=== PATIENT | male | born 1960 | race Caucasian/White ===

== ENCOUNTER 2016-05-22 10:23 | Inpatient (IN) | payer MEDICARE ==
[2016-05-22] VITALS (9 sets, daily range): BP systolic 142–158; BP diastolic 67–92; PULSE 85–112; RESP 16–30; O2SAT 95–98
[~2016-05-22] VITALS: Ht 188 cm; Wt 99.1 kg
[~2016-05-22 10:23] MED LIST: ATOR20TA65 PO; CARV6.25 PO; FRSM80T PO; INSU100C8 SUBQ; INSU100V4 SUBQ; KLO1T PO; LAN125 PO; LINE600T2 PO; MAGN400T39 PO; OXYC1TAB24 PO; POTA20LI2 PO; PREG300C PO; SPIR25TA3 PO; SYMINH INHALATION; TAMS0.4C98 PO; WARF10TA4 PO
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
[2016-05-22] MEDS ORDERED: 0.9% Sodium Chloride 1,000 ML IV ONE ×2 (11:09→13:35)
[2016-05-22] MEDS ORDERED: Azithromycin Inj 500 MG in Dextrose 5% w/Vial Mate 250 ML IV ONE (11:10)
[2016-05-22] MEDS ORDERED: cefTRIAXone Inj 2,000 MG in Dextrose 5% Minibag Plus 50 ML IV ONE (11:10)
[2016-05-22] MEDS: Ondansetron 2 mg/mL 2 mL Inj IVPUSH PRN ×3 (11:39→21:23)
[2016-05-22] MEDS: HYDROmorphone 0.5 mg/0.5 mL iSecure Syringe IVPUSH PRN ×4 (11:39→20:40)
[2016-05-22 11:54] LABS: BASOPHILS % (AUTO) 0.2 % (0-3); EOSINOPHILS % (AUTO) 1.2 % (0-5); MONOCYTES % (AUTO) 7.9 % (4-12); Mean Corpuscular Hemoglobin 27.8 pg (27.0-35.0); Mean Corpuscular Volume 81.7 fL (81-100); NEUTROPHILS % (AUTO) 80.3 % (40-74); Platelet Count 210 bil/L (150-400)
[2016-05-22 12:09] LABS: INR 1.38 ratio
[2016-05-22 12:25] LABS: TROPONIN T 0.01 ug/L (0.0-0.011)
[2016-05-22 12:36] LABS: APPEARANCE,URINE CLEAR (CLEAR,HAZY); COLOR,URINE YELLOW (YELLOW)
[2016-05-22 12:37] LABS: OCCULT BLOOD,URINE NEGATIVE (NEGATIVE)
--- NOTE | 2016-05-22 12:54 | DRSVH ---
PROCEDURE: X-RAY CHEST ONE VIEW, PORTABLE ([id number]) INDICATIONS: cough TECHNIQUE: One view of the chest was acquired. COMPARISON: [facility], CR, XR CHEST 1VW (PORTABLE), 11/10/2014, 14:17. FINDINGS: Surgical changes and devices: AICD is stable in appearance. Lungs and pleura: No pleural effusions or pneumothorax. Lungs are clear. Mediastinum: Mediastinal contours appear normal. Heart size is normal. Bones and chest wall: No suspicious bony lesions. Overlying soft tissues appear unremarkable. IMPRESSION: No acute cardiopulmonary disease process. Dictated by: Katerin Pratt MD, PhD on 05/22/2016 at 12:27 Approved by: Katerin Pratt MD, PhD on 05/22/2016 at 12:27
[2016-05-22] MEDS ORDERED: 0.9% Sodium Chloride 1,000 ML IV SCH (13:32)
[2016-05-22] MEDS ORDERED: Ondansetron 2 mg/mL 2 mL Inj IVPUSH PRN (13:35)
[2016-05-22] MEDS ORDERED: Alum-Mag Hydrox-Simeth 30 mL Suspension PO PRN ×2 (13:35→14:35)
[2016-05-22] MEDS ORDERED: POTA10TA12 PO (14:07)
[2016-05-22] MEDS ORDERED: Polyethylene Glycol (PEG) 17 Gm Powder PO PRN (14:35)
[2016-05-22] MEDS ORDERED: Senna-Docusate 8.6-50 mg Tablet PO PRN (14:35)
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
--- NOTE | 2016-05-22 16:17 | NUR ---
Admit Patient admitted from ED, arrived to unit via gurney. Patient stood up and ambulated from [place] to bed independently using cane. A& O x3. 10/10 pain in toes r/t neuropathy. VSS. Denies dyspnea. Intermittent productive cough that patient states he has had for weeks is his main complaint. Girlfriend at bedside, call light with in reach.
[2016-05-22] MEDS ORDERED: WARFARIN SODIUM 15 MG PO SCH (17:10)
[2016-05-22] MEDS ORDERED: Non-Formulary Medication (Warfarin Sodium 10 MG) PO SCH (17:10)
--- NOTE | 2016-05-22 17:20 | NUR ---
Social Work: Initial Assessment D: Per EMR review, pt is a 55 year old male admitted for pneumonia R Side. Pt is Medicare with no supplement; pt has no LTC insurance or VA benefits. PCP is Real Wood MD. NOK is Cyndie Sales, friend, . Advanced directives not completed- information provided by INFRASTRUCTURE TECH. Readmit score not entered at this time. INFRASTRUCTURE TECH met with pt at bedside. Sw role and contact information provided. See initial assessment. Pt lives in a 5th Wheel trailer in [place] with 3 steps to enter. Pt is I with ADLs and uses a cane for ambulation. Pt does not have a reliable form of transportation and relies on friends to transport him to appointments and to get food. Pt has a history with [facility] for RN, PT. He would like to explore adding these services at time of discharge. HH CHOICE LIST PROVIDED- preference is for [facility]. Pt also has a history with [facility]. He does not wish to return to skilled rehab. Pt states that he will have a friend transport him home when medically stable. F2F in folder for MD signature if pt meets criteria for home health. A: Pt who is from [place] and I at baseline. P: Anticipate pt to discharge home with [facility] for RN care. INFRASTRUCTURE TECH to continue to follow and provide referral to [facility] if pt is medically appropriate. MENDEZ Cuellar Addendum: 05/22/16 at 1727 by RAY DURAN Amended: Links added.
[2016-05-22] MEDS: 0.9% Sodium Chloride 1,000 ML IV SCH (17:54)
[2016-05-22] MEDS ORDERED: HYDROmorphone 0.5 mg/0.5 mL iSecure Syringe IVPUSH SCH (18:00)
--- NOTE | 2016-05-22 19:41 | PCM.PHAPRO ---
Progress Date of Service: May 22, 2016 ANTICOAGULATION MANAGEMENT BY PHARMACY -INDICATION: MIOCARDIAL INFARCTION X4 -HOME DOSE: 10 MG SUN,THU,THU,THU,SAT 15 MG , -CONCURRENT ANTICOAGULATION: NONE -CRCL: 126 ML/MIN -COAG TRENDS: 2-May 1.38 -[id number] SCORE: 4 PLAN: WILL RESTART PATIENT ON THEIR HOME DOSE OF 10 MG TONIGHT DUE TO SUBTHERAPEUTIC INR AND WILL CONTINUE TO WATCH INR TRENDS AND DOSE APPROPRIATE Pharmacy appreciates consult and will continue to monitor. THANKS! Jessie Sotelo PharmD May 22, 2016 19:41
[2016-05-22] MEDS ORDERED: Glucose 40% Oral Gel 15 Gm Tube PO PRN (19:50)
[2016-05-22] MEDS ORDERED: INSULIN DETEMIR 45 UNIT SUBQ SCH (20:30)
[2016-05-22] MEDS: Insulin GLARgine 100 Unit/mL Syringe SUBQ SCH ×2 (20:30→21:35)
[2016-05-22] MEDS: Insulin LISPRO 300 Unit/3 mL Inj SUBQ SCH (21:34)
--- NOTE | 2016-05-22 22:58 | NUR ---
Lab pt positive for Human Metapneumovirus, called MD placed pt on contact and droplet precautions.
[2016-05-23] MEDS: Ondansetron 2 mg/mL 2 mL Inj IVPUSH PRN ×2 (01:17→08:49)
[2016-05-23] MEDS: HYDROmorphone 0.5 mg/0.5 mL iSecure Syringe IVPUSH PRN (01:18)
[2016-05-23 03:50] LABS: BASOPHILS % (AUTO) 0.3 % (0-3); EOSINOPHILS % (AUTO) 1.3 % (0-5); MONOCYTES % (AUTO) 10.4 % (4-12); Mean Corpuscular Volume 83.6 fL (81-100); NEUTROPHILS % (AUTO) 74.8 % (40-74); Platelet Count 182 bil/L (150-400)
[2016-05-23 03:57] VITALS: BP 145/88; PULSE 89; RESP 18; O2SAT 96
[2016-05-23 03:59] LABS: INR 1.12 ratio
[2016-05-23 04:06] LABS: Magnesium 1.7 mg/dL (1.6-2.6)
--- NOTE | 2016-05-23 05:14 | NUR ---
pain/nausea pt with 10/10 pain in his toes, 0.5mg IV dilaudid given pt feels nausea so gave 4mg IV zofran both were effective, later pt requesting more dilaudid and zofran for nausea at the time pt was eating chips and drinking mt dew soda. reported to pt that if he was nauseated that eating chips and drinking mt dew wasn't going to help even with the zofran. pt getting very upset threatened to leave AMA, explained to pt that the zofran could help with his nausea but most likely not if he was eating and drinking. pt stating he didn't need my opinion and i just needed to get him what he asked for, gave both. about an hour later pt reporting to PORTRAIT CONSULTANT that the nausea medication didn't work. offered another dose of zofran pt declined. pt appears to be resting comfortably
[2016-05-23 08:00] VITALS: BP 148/80; PULSE 80; PULSE 87; RESP 18; O2SAT 95
[2016-05-23] MEDS ORDERED: Azithromycin Inj 500 MG in Dextrose 5% w/Vial Mate 250 ML IV SCH (08:30)
[2016-05-23] MEDS ORDERED: cefTRIAXone Inj 2,000 MG in Dextrose 5% Minibag Plus 50 ML IV SCH (08:30)
[2016-05-23] MEDS: 0.9% Sodium Chloride 1,000 ML IV SCH (08:49)
[2016-05-23] MEDS: Insulin LISPRO 300 Unit/3 mL Inj SUBQ SCH ×2 (08:58→12:00)
[2016-05-23] MEDS: Insulin GLARgine 100 Unit/mL Syringe SUBQ SCH (08:59)
--- NOTE | 2016-05-23 10:25 | NUR ---
Case Management: IMM given and explained at 09:25. Dolores BARNES RN
[2016-05-23 12:00] VITALS: BP 146/84; PULSE 85; RESP 16; O2SAT 97
[2016-05-23 12:59] VITALS: PULSE 92
--- NOTE | 2016-05-23 13:15 | PCM.DIMED ---
Discharge Instructions Date of Service May 23, 2016 Dates of Hospitalization May 22, 2016 at 14:20 Discharge Diagnosis Discharge Diagnosis #.community acquired pneumonia. Active. #. human metapneumovirus infection /pneumonia # chronic systolic CHF EF 10-15% #. Insulin Dependent Diabetes, present on admission. Active. #. Complete heart block and history of Ventricular fib with AICD /PM #. Severe Diabetic peripheral neuropathy, present on admission. Active. #History of [place] x4 #History of BPH #History of COPD Diet Low fat, Low Sodium, Heart Healthy, Diabetic Activity Limited until seen by PCP Call your provider Fever or Chills, Shortness of breath, Bleeding, Chest pain, Vomitting, Excessive diarrhea, Weakness (unilateral) Patient Instructions You were hospitalized due to pneumonia due to heman metapneumovirus ( common cold) and possible bacterial pneumonia. Please take Augmentin for 4 more days .Please follow up with PCP in 1 week. Follow-up plan Please follow-up with PCP in 1 week. Follow-up Provider: Real Wood MD Follow-up with PCP in: 1 week Patrick Viera MD May 23, 2016 13:15
[2016-05-23] MEDS ORDERED: AMOX1TAB11 PO (13:16)
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
== END 2016-05-23 13:50 | disposition home or self-care (01) | DRG 194 ==
LOC: SED 10:23 → PCC 14:20 → OBSVTOIN 14:20 → PCC 14:30
PROVIDERS: ADMIT Internal Medicine; ATTEND Internal Medicine
DX: J12.3 Human metapneumovirus pneumonia (principal); I50.22 Chronic systolic (congestive) heart failure; Z79.4 Long term (current) use of insulin; J44.9 Chronic obstructive pulmonary disease, unspecified; E11.42 Type 2 diabetes mellitus with diabetic polyneuropathy; N40.0 Benign prostatic hyperplasia without lower urinary tract symptoms; I25.2 Old myocardial infarction; F17.210 Nicotine dependence, cigarettes, uncomplicated; I25.10 Atherosclerotic heart disease of native coronary artery without angina pectoris; Z79.01 Long term (current) use of anticoagulants; I10 Essential (primary) hypertension; E78.5 Hyperlipidemia, unspecified; Z95.810 Presence of automatic (implantable) cardiac defibrillator